=== PATIENT | male | born 2000 | race Caucasian/White ===

== ENCOUNTER 2024-07-08 19:43 | Emergency (ER) | payer OTHER ==
[~2024-07-08] VITALS: Ht 175.3 cm; Wt 75.6 kg
[2024-07-08 21:36] VITALS: BP 130/78; TEMP 98.7; O2SAT 99
== END 2024-07-08 21:36 | disposition home or self-care (01) ==
LOC: M ED 19:43
DX: S62.605A Fracture of unspecified phalanx of left ring finger, initial encounter for closed fracture (principal); Y92.019 Unspecified place in single-family (private) house as the place of occurrence of the external cause; Y93.9 Activity, unspecified; Y99.9 Unspecified external cause status; F17.210 Nicotine dependence, cigarettes, uncomplicated